=== PATIENT | female | born 1960 | race Caucasian/White ===

== ENCOUNTER → 2017-09-17 | Outpatient (CLI) | payer OTHER | LOC: M.RAD 10:58 | DX: M25.462 Effusion, left knee (principal) ==

== ENCOUNTER → 2017-09-24 | Outpatient (CLI) | payer OTHER | LOC: M.MRI 07:55 | DX: M71.22 Synovial cyst of popliteal space [Baker], left knee (principal) ==

== ENCOUNTER → 2017-11-06 | Outpatient (CLI) | payer OTHER | LOC: M.RAD 05-07 14:02 → M.ULTRA 05-16 08:00 → M.RAD 05-16 08:00 | DX: M19.072 Primary osteoarthritis, left ankle and foot (principal); M85.872 Other specified disorders of bone density and structure, left ankle and foot ==

== ENCOUNTER → 2018-04-29 | Outpatient (CLI) | payer OTHER | LOC: M.ULTRA 07:22 | DX: E04.1 Nontoxic single thyroid nodule (principal) ==

== ENCOUNTER → 2018-11-14 | Outpatient (CLI) | payer OTHER | LOC: M.RAD 07:05 | DX: Z12.31 Encounter for screening mammogram for malignant neoplasm of breast (principal) ==